=== PATIENT | male | born 1950 | race Caucasian/White ===

== ENCOUNTER → 2016-12-14 | Outpatient (CLI) | payer MEDICARE, MEDICAID ==
[~2016-12-14] MED LIST: BUPR100T6 PO; CHOL100015 PO; ESZO1TAB8 PO; FINA5TAB PO; GABA300C10 PO; HYDR-202 PO; HYDR25CA PO; LORA1TAB PO
== END | disposition home or self-care (01) ==
LOC: CFH 13:35
PROVIDERS: ATTEND Family Medicine
DX: Z12.2 Encounter for screening for malignant neoplasm of respiratory organs (principal); G31.9 Degenerative disease of nervous system, unspecified; I25.10 Atherosclerotic heart disease of native coronary artery without angina pectoris; F17.210 Nicotine dependence, cigarettes, uncomplicated
CPT/HCPCS: 70450; G0297

== ENCOUNTER → 2018-07-17 | Outpatient (CLI) | payer MEDICARE, MEDICAID | END | disposition home or self-care (01) | LOC: RAD 12:35 | PROVIDERS: ATTEND Family Medicine | DX: Z12.2 Encounter for screening for malignant neoplasm of respiratory organs (principal); I70.0 Atherosclerosis of aorta; I77.819 Aortic ectasia, unspecified site; I25.10 Atherosclerotic heart disease of native coronary artery without angina pectoris; F17.210 Nicotine dependence, cigarettes, uncomplicated; M25.78 Osteophyte, vertebrae | CPT/HCPCS: G0297 ==

== ENCOUNTER → 2018-07-18 | Outpatient (CLI) | payer MEDICARE, MEDICAID | END | disposition home or self-care (01) | LOC: CARD 10:06 | PROVIDERS: ATTEND Family Medicine | DX: R07.9 Chest pain, unspecified (principal); R94.31 Abnormal electrocardiogram [ECG] [EKG]; R42 Dizziness and giddiness | CPT/HCPCS: 93017; 93350 ==

== ENCOUNTER → 2019-03-14 | Outpatient (CLI) | payer MEDICARE, MEDICAID | END | disposition home or self-care (01) | LOC: RAD 15:33 | PROVIDERS: ATTEND Nurse Practitioner | DX: M25.522 Pain in left elbow (principal) ==

== ENCOUNTER 2020-07-23 15:32 | Emergency (ER) | payer MEDICARE, MEDICAID ==
[~2020-07-23] VITALS: Ht 177.8 cm; Wt 62.1 kg
--- NOTE | 2020-07-23 16:00 | NUR ---
c/o right side pain that has been occuring past 4 weeks and has spead to his back
[2020-07-23] MEDS ORDERED: SUVO20TA PO (16:24)
[2020-07-23] MEDS ORDERED: NYST15CR TP (16:24)
[2020-07-23] MEDS ORDERED: KETO15CR17 TP (16:24)
[2020-07-23] MEDS ORDERED: METF500T17 PO (16:24)
[2020-07-23] MEDS ORDERED: FLUT16SP24 NAS (16:25)
[2020-07-23] MEDS ORDERED: MUPI22OI2 TP (16:25)
[2020-07-23 17:43] LABS: MICROSCOPIC NOT IND
--- NOTE | 2020-07-23 17:48 | NUR ---
PT REPORTED THAT HE HAD ORANGE PEE, AND WAS ASKING IF WE COULD TEST HIS URINE. MD NOTIFIED AND ORDER PLACED. COLLECTED JUST WAITING FOR RESULTS.
[2020-07-23 18:06] VITALS: BP 119/72
== END 2020-07-23 18:11 | disposition home or self-care (01) ==
LOC: ED 18:00
DX: M62.830 Muscle spasm of back (principal); R10.9 Unspecified abdominal pain
CPT/HCPCS: 81003; 99283

== ENCOUNTER 2020-08-05 04:42 | Emergency (ER) | payer MEDICARE, MEDICAID ==
[~2020-08-05] VITALS: Ht 170.2 cm; Wt 69.0 kg
[~2020-08-05 04:42] MED LIST changes: +FLUT16SP24 NAS; +KETO15CR17 TP; +METF500T17 PO; +MUPI22OI2 TP; +NYST15CR TP; +SUVO20TA PO
[2020-08-05 04:48] VITALS: BP 147/81
--- NOTE | 2020-08-05 05:39 | NUR ---
SHAD LENS PLACED WITH 1L NS
== END 2020-08-05 06:53 | disposition home or self-care (01) ==
LOC: ED 05:13
DX: S05.02XA Injury of conjunctiva and corneal abrasion without foreign body, left eye, initial encounter (principal); H10.212 Acute toxic conjunctivitis, left eye; Z77.098 Contact with and (suspected) exposure to other hazardous, chiefly nonmedicinal, chemicals; F17.200 Nicotine dependence, unspecified, uncomplicated; X58.XXXA Exposure to other specified factors, initial encounter; Y93.89 Activity, other specified; Y92.89 Other specified places as the place of occurrence of the external cause; Y99.8 Other external cause status
CPT/HCPCS: 99283